=== PATIENT | male | born 1975 | race Caucasian/White ===

== ENCOUNTER 2023-02-25 22:09 | Emergency (ER) | payer BC ==
[2023-02-25] MEDS ORDERED: Ondansetron ODT 4 MG TAB ONE (22:46)
[2023-02-25] MEDS ORDERED: Glucagon 1 MG/ML KIT ONE ×2 (22:46→23:15)
== END 2023-02-26 01:27 | disposition short-term general hospital (02) ==
LOC: MADERS 22:09
DX: T18.128A Food in esophagus causing other injury, initial encounter (principal); R11.2 Nausea with vomiting, unspecified; W44.F3XA Food entering into or through a natural orifice, initial encounter; Y93.89 Activity, other specified; Z79.899 Other long term (current) drug therapy
CPT/HCPCS: 70360; 96372; J1611; Q0162